=== PATIENT | female | born 1955 | race Caucasian/White ===

== ENCOUNTER 2018-08-01 09:07 | Emergency (ER) | payer BC, MEDICARE ==
--- NOTE | 2018-08-01 10:04 | Emergency Department Record ---
History of Present Illness - General Chief complaint: Female Urogenital Problem Stated complaint: BURN WITH URINATION/FLANK PAIN Time Seen by Provider: 08/01/18 09:55 Source: Patient, RN notes reviewed Mode of Arrival: Ambulatory - History of Present Illness Initial comments: patient has been on two antibiotics and not getting better and finished cipro 10 days BID last night at 7pm and had 4 days of another antibiotic(Macrobid) which was resistant before the cipro . Seen at [facility] times two. She had a fever last night and no tylenol or notrin today and last dose of cipro last night at 7 pm. bilateral flank pain and her pain is mostly with urination. urine from 07/16/2017 positive for klebsiella and sensitive to cipro and rocephin and keflex and resistant to macrobid. Onset/Timin -: Week(s) Radiation: L flank, R flank Severity: Moderate Severity scale (1-10): 5 Quality: Other Consistency: Constant Improves with: None Worsens with: None Associated Symptoms: Dysuria - Related Data Allergies Allergy/AdvReac Type Severity Reaction Status Date / Time No Known Drug Allergies Allergy Verified 08/01/18 09:13 Travel Screening - Travel/Exposure Within Last 30 Days Have you traveled within the last 30 days?: No - Travel/Exposure Within Last Year Have you traveled outside the [place] in the last year?: No - Additonal Travel Details Have you been exposed to anyone with a communicable illness?: No - Travel Symptoms Symptom Screening: None Review of Systems Reviewed: No additional complaints except as noted below Constitutional: Reports: As per HPI. Denies: Chills, Fever, Malaise, Night sweats, Weakness, Weight change Eyes: Reports: As per HPI. Denies: Eye discharge, Eye pain, Photophobia, Vision change ENT: Reports: As per HPI. Denies: Congestion, Dental pain, Ear pain, Epistaxis , Hearing loss, Throat pain Respiratory: Reports: As per HPI. Denies: Cough, Dyspnea, Hemoptysis, Stridor, Wheezes Cardiovascular: Reports: As per HPI. Denies: Arrhythmia, Chest pain, Dyspnea on exertion, Edema, Murmurs, Orthopnea, Palpitations, Paroxysmal nocturnal dyspnea, Rheumatic Fever, Syncope Endocrine: Reports: As per HPI. Denies: Fatigue, Heat or cold intolerance, Polydipsia, Polyuria Gastrointestinal: Reports: As per HPI. Denies: Abdominal pain, Constipation, Diarrhea, Hematemesis, Hematochezia, Melena, Nausea, Vomiting Genitourinary: Reports: As per HPI, Dysuria, Frequency. Denies: Abnormal menses , Discharge, Dyspareunia, Hematuria, Incontinence, Retention, Urgency Musculoskeletal: Reports: As per HPI, Back pain, Other (bilateral flank pain). Denies: Arthralgia, Gout, Joint swelling, Myalgia, Neck pain Skin: Reports: As per HPI. Denies: Bruising, Change in color, Change in hair/ nails, Lesions, Pruritus, Rash Neurological: Reports: As per HPI. Denies: Abnormal gait, Confusion, Headache, Numbness, Paresthesias, Seizure, Tingling, Tremors, Vertigo, Weakness Psychiatric: Reports: As per HPI. Denies: Anxiety, Auditory hallucinations, Depression, Homicidal thoughts, Suicidal thoughts, Visual hallucinations Hematological/Lymphatic: Reports: As per HPI. Denies: Anemia, Blood Clots, Easy bleeding, Easy bruising, Swollen glands Past Medical History - SOCIAL HISTORY Smoking Status: Never smoker Alcohol Use: None Drug Use: None - RESPIRATORY Hx Respiratory Disorders: No - CARDIOVASCULAR Hx Cardio Disorders: Yes Hx Cardiac Cath: Yes Hx Irregular Heartbeat: Yes (A fib) - NEURO Hx Neuro Disorders: No - GI Hx GI Disorders: No - Hx Genitourinary Disorders: No - ENDOCRINE Hx Endocrine Disorders: Yes Hx Diabetes: Yes Hx Thyroid Disease: Yes - MUSCULOSKELETAL Hx Musculoskeletal Disorders: Yes - PSYCH Hx Psych Problems: No - HEMATOLOGY/ONCOLOGY Hx Hematology/Oncology Disorders: No Family Medical History Any Significant Family History?: Yes Hx Cancer: Mother, Brother/Sister, Grandparents Hx Diabetes: Father, Mother, Brother/Sister, Grandparents Hx Heart Disease: Father, Mother Physical Exam - General General Appearance: Alert, Oriented x3, Cooperative, No acute distress - Head Head exam: Normal inspection - Eye Eye exam: Normal appearance, PERRL Pupils: Normal accommodation - ENT ENT exam: Normal exam, Mucous membranes moist, Normal external ear exam, Normal orophraynx, TM's normal bilaterally Ear exam: Normal external inspection. negative: External canal tenderness Nasal Exam: Normal inspection. negative: Discharge, Sinus tenderness Mouth exam: Normal external inspection, Tongue normal Teeth exam: Normal inspection. negative: Dental caries Throat exam: Normal inspection. negative: Tonsillar erythema, Tonsillar exudate - Neck Neck exam: Normal inspection, Full ROM. negative: Tenderness - Respiratory Respiratory exam: Normal lung sounds bilaterally. negative: Respiratory distress - Cardiovascular Cardiovascular Exam: Regular rate, Normal rhythm, Normal heart sounds - GI/Abdominal GI/Abdominal exam: Soft, Normal bowel sounds. negative: Tenderness - Rectal Rectal exam: Deferred - exam: Deferred - Extremities Extremities exam: Normal inspection, Full ROM, Normal capillary refill. negative: Tenderness - Back Back exam: Reports: Normal inspection, Full ROM. Denies: Muscle spasm, Rash noted, Tenderness - Neurological Neurological exam: Alert, Normal gait, Oriented X3, Reflexes normal - Psychiatric Psychiatric exam: Normal affect, Normal mood - Skin Skin exam: Dry, Intact, Normal color, Warm Course Vital Signs 08/01/18 09:23 Temperature 99.9 F H Pulse Rate 91 H Respiratory 20 Rate Blood Pressure 138/62 Pulse Ox 97 - Reevaluation(s) Reevaluation #1: 08/01/18 12:16 08/01/18 12:17 08/01/18 12:18 08/01/18 13:[address] Cifuentes urology at [facility] and will transfer to ED for evaluation and further treatment for obstructed kidney stone and fever and recent UTI. 5 mm in the proximal ureter. Discussed case with Dr Gil HEBERT and will transfer to [facility]. Patient refused an ambulance and will transport her to [facility] ED Medical Decision Making - Data Complexity MDM Data: Labs Ordered and/or Reviewed (14,500 wbc and urine has RBC TNTC), X- Ray Ordered and/or Reviewed (Right kidney stone with hydronephrosis and 5 mm stone in the proximal ureter) - Lab Data Result diagrams: 08/01/18 09:20 08/01/18 09:20 Disposition Clinical Impression: Kidney stone on right side UTI (urinary tract infection) Qualifiers: Urinary tract infection type: acute cystitis Hematuria presence: with hematuria Qualified Code(s): N30.01 - Acute cystitis with hematuria Hematuria Qualifiers: Hematuria type: unspecified type Qualified Code(s): R31.9 - Hematuria, unspecified Hydronephrosis Qualifiers: Hydronephrosis type: with ureteral calculous obstruction Qualified Code(s): N13.2 - Hydronephrosis with renal and ureteral calculous obstruction Disposition: Acute Care Hospital Transfer Condition: (2) Stable Forms: Patient Portal Access Time of Disposition: 14:02 Quality - Quality Measures Quality Measures: N/A - Blood Pressure Screening Does Patient Have Any of the Following: No Blood Pressure Classification: Pre-Hypertensive BP Reading Systolic Measurement: 138 Diastolic Measurement: 62 Screening for High Blood Pressure: < Pre-Hypertensive BP, F/U Documented > [ G8950] Pre-Hypertensive Follow-up Interventions: Referral to alternative/primary care provider.
[2018-08-01] MEDS ORDERED: 0.9 % SODIUM CHLORIDE 1,000 ML BAG IV ONE (10:05)
[2018-08-01] MEDS ORDERED: CEFTRIAXONE SODIUM 2 GM in 0.9 % SODIUM CHLORIDE 100ML 100 ML IVPB ONE (10:07)
[2018-08-01 10:22] LABS: HEMATOCRIT 36.5 % (35.0-47.0); HEMOGLOBIN 13.2 gm/dl (11.6-16.0); MEAN CELL VOLUME 90.8 fl (81-97); MEAN CORPUSCULAR HEMOGLOBIN 32.8 pg (27-33); MEAN CORPUSCULAR HGB CONC 36.2 g/dl (32-36); MEAN PLATELET VOLUME 9.3 fl (7.4-10.4); PLATELET COUNT 356 K/uL (130-400); RED BLOOD COUNT 4.02 M/uL (3.80-5.40); RED CELL DISTRIBUTION WIDTH 12.6 % (11.5-14.5); WHITE BLOOD COUNT W/O DIFF 14.5 K/uL (4.2-12.2)
[2018-08-01 10:24] LABS: URINE APPEARANCE SL CLOUDY; URINE BILIRUBIN NEGATIVE (NEGATIVE); URINE BLOOD LARGE (NEGATIVE); URINE COLOR YELLOW; URINE GLUCOSE (UA) NEGATIVE (NEGATIVE); URINE KETONE NEGATIVE (NEGATIVE); URINE LEUKOCYTE ESTERASE NEGATIVE (NEGATIVE); URINE NITRITE NEGATIVE (NEGATIVE); URINE PROTEIN TRACE (NEGATIVE); URINE UROBILINOGEN 0.2 E.U./dL (0.20 - 1.00)
[2018-08-01 10:30] LABS: URINE EPITHELIAL CELLS 0 - 2 (FEW); URINE WBC NONE SEEN (0-2/hpf)
[2018-08-01 10:32] LABS: BLOOD UREA NITROGEN 14 mg/dL (8-23); CREATININE 0.7 mg/dL (0.5-0.9); EST GLOMERULAR FILTRATION RATE > 60 mL/min
[2018-08-01 10:34] LABS: PLATELET ESTIMATE NORMAL (NORMAL)
[2018-08-01 10:35] LABS: GLUCOSE,RANDOM 172 mg/dL (74-109)
[2018-08-01] MEDS ORDERED: KETOROLAC 30 MG/ML VIAL IVP ONE (13:13)
--- NOTE | 2018-08-02 13:23 | CT SCAN REPORT ---
EXAM: NONCONTRAST CT OF THE ABDOMEN AND PELVIS HISTORY: BILATERAL FLANK PAIN, FEVER. TECHNIQUE: Noncontrast CT of the abdomen and pelvis was obtained. Comparison: None. FINDINGS: Bilateral breast implants, partially seen. Minimal bibasilar atelectasis. Incidental 4 mm subpleural right lower lobe nodule (series 3 image 4). Unremarkable noncontrast appearance of the liver, gallbladder, spleen, adrenal glands, and pancreas. Moderate right hydronephrosis secondary to a 5 mm calculus within the proximal right ureter (coronal series image 87). No additional right ureteral calculi are identified, although the distal most ureter is partially obscured by beam kaur artifact from right hip arthroplasty. No left hydronephrosis. No left sided intrarenal or ureteral calculi are detected. Large volume of stool in the cecum. Moderate volume of stool throughout the remainder of the colon. No focal colonic thickening or inflammatory change. The stomach and small bowel are not dilated. No free air or free fluid. The bladder is obscured by arthroplasty beam hardening artifact. Aortoiliac arterial access is calcified and mildly tortuous without aneurysmal dilatation. No appreciable mesenteric or retroperitoneal lymphadenopathy. No definite acute osseous findings. Multilevel lumbar degenerative changes with extensive degenerative end plate sclerosis at L4-L5. The urinary bladder is obscured by right hip arthropathy beam hardening artifact. IMPRESSION: 1. MODERATE RIGHT HYDROURETERONEPHROSIS SECONDARY TO AN OBSTRUCTING 5 MM CALCULUS WITHIN THE PROXIMAL RIGHT URETER. 2. NO EVIDENCE OF LEFT SIDED OBSTRUCTIVE UROPATHY OR UROLITHIASIS. 3. INCIDENTAL 4 MM RIGHT LOWER LOBE NODULE. IF PATIENT IS CONSIDERED HIGH RISK FOR LUNG CANCER, FOLLOW-UP CT MAY BE OBTAINED IN TWELVE MONTHS. 4. MODERATE TO LARGE COLONIC STOOL BURDEN. JOB NUMBER: [id number] [facility]
== END 2018-08-01 14:16 | disposition short-term general hospital (02) ==
LOC: ER 09:07
DX: N13.2 Hydronephrosis with renal and ureteral calculous obstruction (principal); N30.01 Acute cystitis with hematuria; R50.81 Fever presenting with conditions classified elsewhere; E11.9 Type 2 diabetes mellitus without complications; Z79.84 Long term (current) use of oral hypoglycemic drugs; I48.91 Unspecified atrial fibrillation; Z79.01 Long term (current) use of anticoagulants
CPT/HCPCS: 74176; 80048; 81001; 85027; 96361; 96365; 96375; 99285; J1885; J7030

== ENCOUNTER 2018-09-28 11:07 | Emergency (ER) | payer BC, MEDICARE ==
[2018-09-28] MEDS ORDERED: 0.9 % SODIUM CHLORIDE 1,000 ML BAG IV ONE (11:12)
[2018-09-28] MEDS ORDERED: ONDANSETRON HCL IV 4 MG/2 ML VIAL IVP ONE (11:12)
--- NOTE | 2018-09-28 11:18 | Emergency Department Record ---
History of Present Illness - General Chief Complaint: Abdominal Pain Stated Complaint: ABD PAIN Time Seen by Provider: 09/28/18 11:11 Source: Patient Mode of Arrival: Ambulatory Limitations: No limitations - History of Present Illness Initial Comments: 63 yo female presents from Dr Sutton's office. The patient has had lower abdominal pain and urinary discomfort for 3-4 weeks since a stone was removed and a ureteral stent was removed. On 08/01/[address] scan that demonstrated moderate right hydroureternephrosis secondary to obstructing 5mm stone in the proximal R ureter. OR report on 08/27/18 Sparkaykay Cifuentes. Stent placement after stone extraction. Stent was removed without difficulty on September 11 Urine Culture on 09/24/18 is negative for pathogens, mixed zelda MD Complaint: Abdominal pain, Other (Nausea and Vomiting) -: Days(s) Location: Suprapubic Radiation: Suprapubic Migration to: Suprapubic Severity: Moderate Quality: Aching, Cramping Consistency: Intermittent Improves With: Nothing Worsens With: Other (Urination) Context: Recent surgery/procedure Associated Symptoms: Anorexia - Related Data Previous Rx's Medication Instructions Recorded Docusate Sodium [Colace] 100 mg PO BID #20 cap 09/28/18 Allergies Allergy/AdvReac Type Severity Reaction Status Date / Time No Known Drug Allergies Allergy Unverified 09/28/18 10:07 Review of Systems Constitutional: Reports: Malaise. Denies: Chills, Fever Eyes: Denies: Eye discharge ENT: Denies: Congestion, Throat pain Respiratory: Denies: Cough Cardiovascular: Denies: Chest pain, Palpitations, Syncope Endocrine: Reports: Fatigue Gastrointestinal: Reports: Abdominal pain, Nausea, Vomiting. Denies: Constipation, Diarrhea, Hematemesis, Hematochezia, Melena Genitourinary: Denies: Dysuria, Urgency Musculoskeletal: Reports: Back pain. Denies: Arthralgia Skin: Denies: Bruising, Change in color, Rash Neurological: Denies: Headache Psychiatric: Denies: Anxiety Hematological/Lymphatic: Denies: Easy bleeding, Easy bruising, Swollen glands Past Medical History - SOCIAL HISTORY Smoking Status: Never smoker Drug Use: None - RESPIRATORY Hx Respiratory Disorders: No - CARDIOVASCULAR Hx Cardio Disorders: Yes Hx Cardiac Cath: Yes Hx Irregular Heartbeat: Yes (A fib) - NEURO Hx Neuro Disorders: No - GI Hx GI Disorders: No - Hx Genitourinary Disorders: No - ENDOCRINE Hx Endocrine Disorders: Yes Hx Diabetes: Yes Hx Thyroid Disease: Yes - MUSCULOSKELETAL Hx Musculoskeletal Disorders: Yes - PSYCH Hx Psych Problems: No - HEMATOLOGY/ONCOLOGY Hx Hematology/Oncology Disorders: No Family Medical History Hx Cancer: Mother, Brother/Sister, Grandparents Hx Diabetes: Father, Mother, Brother/Sister, Grandparents Hx Heart Disease: Father, Mother Physical Exam - General General Appearance: Alert, Oriented x3, Cooperative, No acute distress Limitations: No limitations - Head Head exam: Atraumatic, Normal inspection - Eye Eye exam: Normal appearance, PERRL. negative: Conjunctival injection, Scleral icterus - ENT ENT exam: Normal exam Ear exam: Normal external inspection Nasal Exam: Normal inspection Mouth exam: Normal external inspection - Neck Neck exam: Normal inspection - Respiratory Respiratory exam: Normal lung sounds bilaterally. negative: Respiratory distress - Cardiovascular Cardiovascular Exam: Regular rate, Normal rhythm, Normal heart sounds - GI/Abdominal GI/Abdominal exam: Soft, Normal bowel sounds. negative: Distended, Guarding, Rebound, Rigid, Tenderness - Rectal Rectal exam: Deferred - exam: Deferred - Extremities Extremities exam: Normal inspection. negative: Tenderness - Back Back exam: Reports: Normal inspection - Neurological Neurological exam: Alert, Oriented X3 - Psychiatric Psychiatric exam: Normal affect, Normal mood - Skin Skin exam: Dry, Intact, Normal color, Warm Course - Reevaluation(s) Reevaluation #1: EMR and [facility] reviewed. SEE HPI for information 09/28/18 11:33 09/28/18 11:51 The CBC and the BMP were reviewed. No acute changes. 09/28/18 12:07 UA is negative 09/28/18 12:[address] scan was negative for any acute process or obstruction. Moderate stool noted throughout the colon. The patient was advised on constipation treatment. If she remains symptomatic I encouraged her to call her urologist for another outpatient recheck. 09/28/18 12:35 Dr Sutton was updated on the results and recommendations for close follow up Medical Decision Making - Lab Data Result diagrams: 09/28/18 11:20 09/28/18 11:20 Disposition Disposition: Discharge Clinical Impression: Dysuria, Constipation Disposition: Home, Self-Care Condition: (1) Good Instructions: Constipation (ED), Dysuria (ED) Additional Instructions: Call your doctor for the next available follow up appointment Return to the ER for a recheck if worse, any new concerns or questions Take the prescriptions provided as directed Review this ER visit and the tests performed with your family doctor Also, call your urologist for close follow up if the urinary symptoms continue Prescriptions: Docusate Sodium [Colace] 100 mg PO BID #20 cap Forms: Patient Portal Access Time of Disposition: 18:39 Quality - Quality Measures Quality Measures: N/A - Blood Pressure Screening Does Patient Have Any of the Following: Active Dx of HTN Blood Pressure Classification: Pre-Hypertensive BP Reading Systolic Measurement: 166 Diastolic Measurement: 80 Screening for High Blood Pressure: Patient Exclusion, Hx of HTN [G9744]
[2018-09-28 11:33] LABS: BASO % 0.5 % (0-6); EOS % 0.7 % (0-6); GRAN % 50.7 % (47-80); HEMOGLOBIN 11.9 gm/dl (11.6-16.0); MEAN CELL VOLUME 84.3 fl (81-97); MEAN CORPUSCULAR HEMOGLOBIN 26.4 pg (27-33); MEAN CORPUSCULAR HGB CONC 31.3 g/dl (32-36); MONO % 9.1 % (0-9); PLATELET COUNT 390 K/uL (130-400); RED BLOOD COUNT 4.51 M/uL (3.80-5.40); RED CELL DISTRIBUTION WIDTH 13.2 % (11.5-14.5)
[2018-09-28 11:43] LABS: BLOOD UREA NITROGEN 18 mg/dL (8-23); CREATININE 0.8 mg/dL (0.5-0.9); EST GLOMERULAR FILTRATION RATE > 60 mL/min
[2018-09-28 11:44] LABS: LIPASE 21 U/L (13-60); TOTAL PROTEIN 8.4 g/dL (6.6-8.7)
[2018-09-28 11:46] LABS: GLUCOSE,RANDOM 144 mg/dL (74-109)
[2018-09-28 11:48] LABS: ALB/GLOB RATIO 1.5 (1.1-1.8); ALKALINE PHOSPHATASE 62 U/L (35-104); ALT/SGPT 28 U/L (<33); AST/SGOT 29 U/L (10.0-35.0)
[2018-09-28 11:57] LABS: URINE APPEARANCE CLEAR; URINE BILIRUBIN NEGATIVE (NEGATIVE); URINE BLOOD NEGATIVE (NEGATIVE); URINE COLOR YELLOW; URINE GLUCOSE (UA) NEGATIVE (NEGATIVE); URINE KETONE NEGATIVE (NEGATIVE); URINE LEUKOCYTE ESTERASE NEGATIVE (NEGATIVE); URINE NITRITE NEGATIVE (NEGATIVE); URINE PROTEIN NEGATIVE (NEGATIVE); URINE UROBILINOGEN 0.2 E.U./dL (0.20 - 1.00)
--- NOTE | 2018-10-01 13:06 | CT SCAN REPORT ---
EXAM: CT OF THE ABDOMEN AND PELVIS WITHOUT CONTRAST HISTORY: RECENT RIGHT URETERAL STENT REMOVAL (09/03/18). PAIN. TECHNIQUE: Routine helical CT examination of the abdomen and pelvis was performed without oral or intravenous contrast administration. Lack of oral and IV contrast utilization limits evaluation of the bowel and solid viscera respectively. Comparison: CT of the abdomen and pelvis without contrast dated 08/01/18. FINDINGS: The inferior portions of bilateral breast implants are visualized with calcified capsule again noted on the left. Mild dependent atelectasis in each lung base. There is redemonstration of an incidental 4 mm subpleural nodule in the lateral right lung base as seen on series 3 image 5. This is unchanged. No pleural or pericardial effusion. The heart is not enlarged. The liver, spleen, pancreas, and adrenal glands are normal in appearance. The gallbladder is mildly to moderately distended without gallbladder wall thickening nor calcified gallstone. No biliary ductal dilatation is seen. The kidneys remain normal in position and smoothly marginated. There is borderline prominence of the proximal renal collecting system without zone of transition nor definite calculus identified. There are a couple tiny calcifications again noted within the right hemipelvis that are likely outside the distal ureter. The left renal collecting system is nondilated. No nephrolithiasis nor renal mass. No intraabdominal nor retroperitoneal lymphadenopathy. There is diffuse atherosclerosis. Evaluation of the inferior pelvis is limited by beam hardening artifact from right hip prosthesis. No new pelvic mass, lymphadenopathy, or free pelvic fluid. No new gross bowel dilatation nor bowel wall thickening. Occasional diverticula are noted within the left colon without evidence of diverticulitis. By history the appendix is surgically absent. There is a moderate amount of stool throughout the colon. There is mild diffuse atherosclerosis without aneurysmal dilatation of the abdominal aorta nor iliac arteries. No new lytic or blastic bone lesion. There are degenerative changes scattered throughout the visualized spine. IMPRESSION: 1. THE PREVIOUSLY DEMONSTRATED OBSTRUCTING CALCULUS IN THE PROXIMAL RIGHT URETER IS NO LONGER IDENTIFIED. THE PROXIMAL RIGHT RENAL COLLECTING SYSTEM IS BORDERLINE PROMINENT WITHOUT A DEFINITE OBSTRUCTING LESION SEEN. NO URETERAL CALCULUS. 2. NO CONVINCING CT EVIDENCE OF AN ACUTE INTRAABDOMINAL NOR INTRAPELVIC PROCESS. 3. 4 MM NONCALCIFIED NODULE REDEMONSTRATED IN THE RIGHT LUNG BASE. BEFORE, IF PATIENT IS CONSIDERED HIGH RISK FOR LUNG CANCER, FOLLOW-UP CT CHEST IN TWELVE MONTHS IS RECOMMENDED. 4. MODERATE VOLUME OF STOOL THROUGH THE COLON. JOB NUMBER: [id number] [facility]
== END 2018-09-28 12:48 | disposition home or self-care (01) ==
LOC: ER 11:07
DX: K59.00 Constipation, unspecified (principal); R30.0 Dysuria; R11.2 Nausea with vomiting, unspecified; I10 Essential (primary) hypertension; I48.91 Unspecified atrial fibrillation; Z87.442 Personal history of urinary calculi
CPT/HCPCS: 99284 ×2; 96374; 83690; 85025; 80053; 81003; 74176; J2405; J7030

== ENCOUNTER 2019-08-24 09:44 | Emergency (ER) | payer BC, MEDICARE ==
[2019-08-24] MEDS ORDERED: 0.9 % SODIUM CHLORIDE 1,000 ML BAG IV ONE (09:54)
--- NOTE | 2019-08-24 09:57 | Emergency Department Record ---
History of Present Illness - General Stated Complaint: ABDOMINAL PAIN Time Seen by Provider: 08/24/19 09:46 Source: Patient, Family Mode of Arrival: Ambulatory Limitations: No limitations - History of Present Illness Initial Comments: 64 yo female presents with 6 weeks of pain on the right side of her abdomen. The pain is intermittent but very frequent. She denies any other major changes in her health. No nausea, vomiting, diarrhea. She does have constipation. No fever. Her appetite is not significantly changed. No blood in her stools or urine. She denies any fever. No back pain. No cough, chest pain or shortness of breath. She has a prior history of appendectomy, hysterectomy, tubal ligation. Prior studies demonstrated diverticulosis, renal stones. MD Complaint: Abdominal pain -: Week(s) (6) Location: RUQ Radiation: RUQ Migration to: RUQ Severity: Moderate Quality: Aching Consistency: Intermittent Improves With: Nothing Worsens With: Nothing Context: Other Associated Symptoms: Denies other symptoms - Related Data Home Medications Medication Instructions Recorded Confirmed Last Taken Zolpidem Tartrate 10 mg PO QHS 08/24/19 08/24/19 08/23/19 Previous Rx's Medication Instructions Recorded Polyethylene Glycol 3350 [Miralax] 17 gm PO DAILY #20 packet 08/24/19 Allergies Allergy/AdvReac Type Severity Reaction Status Date / Time No Known Drug Allergies Allergy Verified 08/24/19 09:50 Review of Systems Constitutional: Denies: Chills, Fever, Malaise, Weakness Eyes: Denies: Eye discharge ENT: Denies: Congestion, Throat pain Respiratory: Denies: Cough, Dyspnea, Wheezes Cardiovascular: Denies: Chest pain, Edema, Palpitations, Syncope Endocrine: Denies: Fatigue, Polydipsia, Polyuria Gastrointestinal: Reports: As per HPI, Abdominal pain, Constipation. Denies: Diarrhea, Hematemesis, Hematochezia, Melena, Nausea, Vomiting Genitourinary: Denies: Dysuria, Urgency Musculoskeletal: Denies: Arthralgia, Back pain, Myalgia Skin: Denies: Bruising, Change in color, Rash Neurological: Denies: Headache Psychiatric: Denies: Anxiety Hematological/Lymphatic: Denies: Easy bleeding, Easy bruising Past Medical History - SOCIAL HISTORY Smoking Status: Never smoker Drug Use: None - RESPIRATORY Hx Respiratory Disorders: No - CARDIOVASCULAR Hx Cardio Disorders: Yes Hx Cardiac Cath: Yes Hx Irregular Heartbeat: Yes (A fib) - NEURO Hx Neuro Disorders: No - GI Hx GI Disorders: No - Hx Genitourinary Disorders: No - ENDOCRINE Hx Endocrine Disorders: Yes Hx Diabetes: Yes Hx Thyroid Disease: Yes - MUSCULOSKELETAL Hx Musculoskeletal Disorders: Yes - PSYCH Hx Psych Problems: No - HEMATOLOGY/ONCOLOGY Hx Hematology/Oncology Disorders: No Family Medical History Hx Cancer: Mother, Brother/Sister, Grandparents Hx Diabetes: Father, Mother, Brother/Sister, Grandparents Hx Heart Disease: Father, Mother Physical Exam - General General Appearance: Alert, Oriented x3, Cooperative, No acute distress Limitations: No limitations - Head Head exam: Atraumatic, Normal inspection - Eye Eye exam: Normal appearance. negative: Conjunctival injection - ENT ENT exam: Normal exam, Mucous membranes moist Ear exam: Normal external inspection Nasal Exam: Normal inspection Mouth exam: Normal external inspection - Neck Neck exam: Normal inspection - Respiratory Respiratory exam: Normal lung sounds bilaterally. negative: Respiratory distress - Cardiovascular Cardiovascular Exam: Regular rate, Normal rhythm, Normal heart sounds - GI/Abdominal GI/Abdominal exam: Soft, Tenderness. negative: Distended, Guarding, Rebound, Rigid - Rectal Rectal exam: Deferred - exam: Deferred - Extremities Extremities exam: Normal inspection. negative: Pedal edema, Tenderness - Back Back exam: Denies: CVA tenderness (R), CVA tenderness (L), Paraspinal tenderness, Rash noted - Neurological Neurological exam: Alert, Oriented X3 - Psychiatric Psychiatric exam: Normal affect, Normal mood - Skin Skin exam: Dry, Intact, Normal color, Warm Course - Reevaluation(s) Reevaluation #1: 08/24/19 10:05 Vitals were reviewed No significant abnormalities The patient declined pain medication at this time 08/24/19 10:19 The CBC was normal on review 08/24/19 10:32 The CMP was reviewed The Glucosse was 264 The Lipase is normal No significant changes in the LFTs 08/24/19 10:42 The patient was updated on her lab results She is resting comfortably waiting for CT scan. She declined and pain medication 08/24/19 12:[address] was reviewed. A large amount of stool noted. Subtle prominence of the right renal collecting system and right ureter compared to left. No stones visualized. The results were discussed and provided to the patient. We discussed Miralax and follow up for possible US if the RUQ pain continues. The patient is doing well and is comfortable with DC. We discussed at length reasons to immediately return to the ED as well as close follow up. The patient will call the PCP for close follow up of this ED visit to review this visit and the tests performed DC vitals were reviewed. The patient was given a copy of the radiology reports to review with their family doctor for follow up We discussed getting an US if the pain continues either through the ED or her family doctor if she can get in or it arranged 08/24/19 12:36 Medical Decision Making - Lab Data Result diagrams: 08/24/19 09:55 08/24/19 09:55 Disposition Disposition: Discharge Clinical Impression: Right upper quadrant abdominal pain Disposition: Home, Self-Care Condition: (1) Good Instructions: Constipation (ED), Abdominal Pain (ED) Additional Instructions: Review this ER visit and the tests performed with your family doctor Call your doctor for the next available follow up appointment Return to the ER for a recheck immediately if worse, any new concerns or questions If the right upper pain continues I recommend an ultrasound in the ER or through your family doctor Prescriptions: Polyethylene Glycol 3350 [Miralax] 17 gm PO DAILY #20 packet Forms: Patient Portal Access Time of Disposition: 12:15 Quality - Quality Measures Quality Measures: N/A - Blood Pressure Screening Does Patient Have Any of the Following: Active Dx of HTN Blood Pressure Classification: Hypertensive Reading Systolic Measurement: 197 Diastolic Measurement: 102 Screening for High Blood Pressure: Patient Exclusion, Hx of HTN [G9744]
[2019-08-24 10:11] LABS: URINE APPEARANCE CLEAR; URINE BILIRUBIN NEGATIVE (NEGATIVE); URINE BLOOD NEGATIVE (NEGATIVE); URINE COLOR YELLOW; URINE KETONE NEGATIVE (NEGATIVE); URINE LEUKOCYTE ESTERASE NEGATIVE (NEGATIVE); URINE NITRITE NEGATIVE (NEGATIVE); URINE PROTEIN NEGATIVE (NEGATIVE); URINE UROBILINOGEN 0.2 E.U./dL (0.20 - 1.00)
[2019-08-24 10:12] LABS: ABSOLUTE NEUTROPHIL COUNT 3.42; BASO % 0.3 % (0-6); EOS % 0.3 % (0-6); GRAN % 58.3 % (47-80); HEMATOCRIT 40.1 % (35.0-47.0); HEMOGLOBIN 13.4 gm/dl (11.6-16.0); LYMPH % 30.6 % (16-45); MEAN CELL VOLUME 98.3 fl (81-97); MEAN CORPUSCULAR HEMOGLOBIN 32.8 pg (27-33); MEAN CORPUSCULAR HGB CONC 33.4 g/dl (32-36); MEAN PLATELET VOLUME 8.8 fl (7.4-10.4); MONO % 10.5 % (0-9); PLATELET COUNT 321 K/uL (130-400); RED BLOOD COUNT 4.08 M/uL (3.80-5.40); RED CELL DISTRIBUTION WIDTH 12.3 % (11.5-14.5); WHITE BLOOD COUNT W/O DIFF 5.9 K/uL (4.2-12.2)
[2019-08-24 10:25] LABS: BLOOD UREA NITROGEN 12 mg/dL (8-23); CREATININE 0.6 mg/dL (0.5-0.9); EST GLOMERULAR FILTRATION RATE > 60 mL/min
[2019-08-24 10:26] LABS: LIPASE 34 U/L (13-60); TOTAL PROTEIN 8.1 g/dL (6.6-8.7)
[2019-08-24 10:28] LABS: GLUCOSE,RANDOM 264 mg/dL (74-109)
[2019-08-24 10:31] LABS: ALB/GLOB RATIO 1.7 (1.1-1.8); ALBUMIN 5.1 g/dL (4.0-5.0); ALKALINE PHOSPHATASE 60 U/L (35-104); ALT/SGPT 50 U/L (<33); AST/SGOT 27 U/L (10.0-35.0)
--- NOTE | 2019-08-24 12:02 | CT SCAN REPORT ---
EXAMINATION: CT Abdomen and Pelvis with IV Contrast EXAM DATE: 08/24/2019 11:35 AM TECHNIQUE: CT imaging of the abdomen and pelvis was performed with intravenous contrast. Coronal and sagittal images were reconstructed. IV Contrast: The amount and type of contrast are recorded in the medical record. INDICATION: R sided abdominal pain COMPARISON: September 2018 CT scan. ENCOUNTER: Not applicable CT ABDOMEN AND PELVIS FINDINGS: Lung Bases: Included extent of the lung bases are clear. Hepatobiliary: The liver has a normal size with a smooth surface. The hepatic and portal veins appear patent. The gallbladder is normal. Pancreas: The pancreas is normal. Spleen: The spleen is not enlarged. Adrenals: The adrenal glands are normal. Kidneys, Ureters, & Bladder: There is subtle asymmetric prominence of the right renal collecting syst em and ureter compared to the left. No obstructing or nonobstructing calculi are identified but the right distal ureter and right UVJ are partially obscured by streak artifact from right total hip arth roplasty hardware. Kidneys enhance normally and symmetrically. Gastrointestinal: The stomach and small bowel are normal with no obstruction or inflammation. A large amount of stool is present throughout the colon and rectum. Reproductive Organs: Status post hysterectomy. Lymphatic System: There is no adenopathy within the abdomen or pelvis. Vasculature: Normal caliber abdominal aorta. Mild to moderate atherosclerosis is noted. Peritoneum: No free fluid, free air, or inflammation Abdominal Wall & Musculoskeletal: No suspicious bone lesions. IMPRESSION: Subtle asymmetric prominence of the right renal collecting system and right ureter compared to the le ft. No obstructing calculi are identified but the distal right ureter and right UVJ are partially obs cured by streak artifact from right total hip arthroplasty hardware. Considerations include tiny obst ructing distal right ureteral calculus, recently passed calculus, and ascending urinary tract infecti on (less likely). Dictated by: Ashwin Durham MD on 08/24/2019 11:55 AM. .
== END 2019-08-24 12:49 | disposition home or self-care (01) ==
LOC: ER 09:44
DX: R10.11 Right upper quadrant pain (principal); K59.00 Constipation, unspecified; I48.91 Unspecified atrial fibrillation; E11.9 Type 2 diabetes mellitus without complications
CPT/HCPCS: 99284 ×2; 83690; 85025; 80053; 81003; 74177; Q9967; J7030

== ENCOUNTER 2019-09-04 08:00 | Emergency (ER) | payer BC, MEDICARE ==
[2019-09-04] MEDS ORDERED: 0.9 % SODIUM CHLORIDE 1,000 ML BAG IV ONE (08:27)
[2019-09-04] MEDS ORDERED: DICYCLOMINE HCL 10 MG/ML AMPUL IM ONE (08:27)
--- NOTE | 2019-09-04 08:30 | Emergency Department Record ---
History of Present Illness - General Chief Complaint: Abdominal Pain Stated Complaint: ABD PAIN Time Seen by Provider: 09/04/19 08:20 Source: Patient, RN notes reviewed Mode of Arrival: Ambulatory - History of Present Illness Initial Comments: right upper quad pain and she states not tolerable and was seen here about one week ago and CT scan negative and US ordered by Dr Sutton she had a positive US murphies sign and two small polyps in the gall bladder. Patient states pain was going on for 6 weeks and initially she thought it was back pain. PSH hysterectomy , appendectomy, hip replacement back surgery, She used to have a back stimulatory but that was removed. Patient is constipated and refused narcotics and she accepted Bentyl. She has ultram at home. Reviewed CT of abd pelvis no kidney stones seen, UD reviewed and reviewed ED chart. Onset/Timin -: Week(s) Location: RUQ Radiation: Back Severity scale (1-10): 8 Quality: Aching, Burning, Cramping, Dull, Sharp, Stabbing Consistency: Constant Associated Symptoms: Nausea - Related Data Previous Rx's Medication Instructions Recorded Polyethylene Glycol 3350 [Miralax] 17 gm PO DAILY #20 packet 08/24/19 Dicyclomine HCl [Bentyl] 10 mg PO Q8H #30 cap 09/04/19 Allergies Allergy/AdvReac Type Severity Reaction Status Date / Time No Known Drug Allergies Allergy Verified 08/24/19 09:50 Travel/Exposure Screening - Travel/Exposure Within Last 30 Days Have you traveled within the last 30 days?: No - Travel/Exposure Within Last Year Have you traveled outside the [place] in the last year?: No - Additonal Travel/Exposure Details Have you been exposed to anyone with a communicable illness?: No - Travel Symptoms Symptom Screening: None Review of Systems Reviewed: No additional complaints except as noted below Constitutional: Reports: As per HPI. Denies: Chills, Fever, Malaise, Night sweats, Weakness, Weight change Eyes: Reports: As per HPI. Denies: Eye discharge, Eye pain, Photophobia, Vision change ENT: Reports: As per HPI. Denies: Congestion, Dental pain, Ear pain, Epistaxis, Hearing loss, Throat pain Respiratory: Reports: As per HPI. Denies: Cough, Dyspnea, Hemoptysis, Stridor, Wheezes Cardiovascular: Reports: As per HPI. Denies: Arrhythmia, Chest pain, Dyspnea on exertion, Edema, Murmurs, Orthopnea, Palpitations, Paroxysmal nocturnal dyspnea, Rheumatic Fever, Syncope Endocrine: Reports: As per HPI. Denies: Fatigue, Heat or cold intolerance, Polydipsia, Polyuria Gastrointestinal: Reports: As per HPI, Abdominal pain, Constipation, Nausea. Denies: Diarrhea, Hematemesis, Hematochezia, Melena, Vomiting Genitourinary: Reports: As per HPI. Denies: Abnormal menses, Discharge, Dyspareunia, Dysuria, Frequency, Hematuria, Incontinence, Retention, Urgency Musculoskeletal: Reports: As per HPI. Denies: Arthralgia, Back pain, Gout, Joint swelling, Myalgia, Neck pain Skin: Reports: As per HPI. Denies: Bruising, Change in color, Change in hair/nails, Lesions, Pruritus, Rash Neurological: Reports: As per HPI. Denies: Abnormal gait, Confusion, Headache, Numbness, Paresthesias, Seizure, Tingling, Tremors, Vertigo, Weakness Psychiatric: Reports: As per HPI. Denies: Anxiety, Auditory hallucinations, Depression, Homicidal thoughts, Suicidal thoughts, Visual hallucinations Hematological/Lymphatic: Reports: As per HPI. Denies: Anemia, Blood Clots, Easy bleeding, Easy bruising, Swollen glands Past Medical History - SOCIAL HISTORY Smoking Status: Never smoker Alcohol Use: None Drug Use: None - RESPIRATORY Hx Respiratory Disorders: No - CARDIOVASCULAR Hx Cardio Disorders: Yes Hx Cardiac Cath: Yes Hx Irregular Heartbeat: Yes (A fib) - NEURO Hx Neuro Disorders: No - GI Hx GI Disorders: No - Hx Genitourinary Disorders: No - ENDOCRINE Hx Endocrine Disorders: Yes Hx Diabetes: Yes Hx Thyroid Disease: Yes - MUSCULOSKELETAL Hx Musculoskeletal Disorders: Yes - PSYCH Hx Psych Problems: No - HEMATOLOGY/ONCOLOGY Hx Hematology/Oncology Disorders: No Family Medical History Any Significant Family History?: No Hx Cancer: Mother, Brother/Sister, Grandparents Hx Diabetes: Father, Mother, Brother/Sister, Grandparents Hx Heart Disease: Father, Mother Physical Exam - General General Appearance: Alert, Oriented x3, Cooperative, Moderate distress - Head Head exam: Normal inspection - Eye Eye exam: Normal appearance, PERRL Pupils: Normal accommodation - ENT ENT exam: Normal exam, Mucous membranes moist, Normal external ear exam, Normal orophraynx, TM's normal bilaterally Ear exam: Normal external inspection. negative: External canal tenderness Nasal Exam: Normal inspection. negative: Discharge, Sinus tenderness Mouth exam: Normal external inspection, Tongue normal Teeth exam: Normal inspection. negative: Dental caries Throat exam: Normal inspection. negative: Tonsillar erythema, Tonsillar exudate - Neck Neck exam: Normal inspection, Full ROM. negative: Tenderness - Respiratory Respiratory exam: Normal lung sounds bilaterally. negative: Respiratory distre ss - Cardiovascular Cardiovascular Exam: Regular rate, Normal rhythm, Normal heart sounds - GI/Abdominal GI/Abdominal exam: Soft, Normal bowel sounds, Tenderness (right upper quad pain with a murphies sign) - Rectal Rectal exam: Deferred - exam: Deferred - Extremities Extremities exam: Normal inspection, Full ROM, Normal capillary refill. negative: Tenderness - Back Back exam: Reports: Normal inspection, Full ROM. Denies: Muscle spasm, Rash noted, Tenderness - Neurological Neurological exam: Alert, Normal gait, Oriented X3, Reflexes normal - Psychiatric Psychiatric exam: Normal affect, Normal mood - Skin Skin exam: Dry, Intact, Normal color, Warm Course Vital Signs 09/04/19 08:06 Temperature 98.1 F Pulse Rate [ 103 H Pulse Ox Probe] Respiratory 20 Rate Blood Pressure 197/102 [Left Arm] Pulse Ox 98 - Reevaluation(s) Reevaluation #1: reviewed labs with the patient and she said her pain is slightly better with the bentyl but she is tired of dealing with this pain and she would like to have it out. Currently she said she has an appointment with Dr Cortes on monday at [facility]. Discussed case with Dr. Cortes 09/04/19 09:18 09/04/19 09:30 Dr. Cortes requested a hida scan and will check to see if it can be done today. Reevaluation #2: Next time Hida scan can be done here is monday. Dr Cortes said he could see her today at 1:30 pm today in his office in [place] 09/04/19 10:21 Reevaluation #3: dose of ofirmiv 1000 mg given in ED 09/04/19 10:28 Reevaluation #4: patient feeling some better 09/04/19 10:31 Medical Decision Making - Data Complexity MDM Data: Labs Ordered and/or Reviewed (WBC 4,100, hg 13.4, Urine no blood in her urine and she is spilling glucose ), X-Ray Ordered and/or Reviewed - Lab Data Result diagrams: 09/04/19 08:15 09/04/19 08:36 Disposition Clinical Impression: Right upper quadrant abdominal pain, Gallbladder disease Disposition: Home, Self-Care Condition: (1) Good Instructions: Abdominal Pain (ED) Additional Instructions: Go to Dr Giraldo office for evaluation at 1:30 pm today No eating till seen by Dr Cortes and will give script of bentyl for pain Prescriptions: Dicyclomine HCl [Bentyl] 10 mg PO Q8H #30 cap Forms: Patient Portal Access Time of Disposition: 10:28 Quality - Quality Measures Quality Measures: N/A - Blood Pressure Screening Does Patient Have Any of the Following: No, Active Dx of HTN Blood Pressure Classification: Hypertensive Reading Systolic Measurement: 149 Diastolic Measurement: 71 Screening for High Blood Pressure: Patient Exclusion, Hx of HTN [G9744] Pre-Hypertensive Follow-up Interventions: Referral to alternative/primary care provider.
[2019-09-04 08:41] LABS: URINE APPEARANCE CLEAR; URINE BILIRUBIN NEGATIVE (NEGATIVE); URINE BLOOD NEGATIVE (NEGATIVE); URINE COLOR YELLOW; URINE KETONE NEGATIVE (NEGATIVE); URINE LEUKOCYTE ESTERASE NEGATIVE (NEGATIVE); URINE NITRITE NEGATIVE (NEGATIVE); URINE PROTEIN NEGATIVE (NEGATIVE); URINE UROBILINOGEN 0.2 E.U./dL (0.20 - 1.00)
[2019-09-04 08:41] LABS: ABSOLUTE NEUTROPHIL COUNT 2.26; BASO % 0.5 % (0-6); EOS % 0.5 % (0-6); GRAN % 55.4 % (47-80); HEMATOCRIT 38.8 % (35.0-47.0); HEMOGLOBIN 13.4 gm/dl (11.6-16.0); LYMPH % 33.1 % (16-45); MEAN CELL VOLUME 95.6 fl (81-97); MEAN CORPUSCULAR HGB CONC 34.5 g/dl (32-36); MONO % 10.5 % (0-9); PLATELET COUNT 276 K/uL (130-400); RED BLOOD COUNT 4.06 M/uL (3.80-5.40); RED CELL DISTRIBUTION WIDTH 11.7 % (11.5-14.5); WHITE BLOOD COUNT W/O DIFF 4.1 K/uL (4.2-12.2)
[2019-09-04 08:50] LABS: BLOOD UREA NITROGEN 10 mg/dL (8-23); CREATININE 0.7 mg/dL (0.5-0.9); EST GLOMERULAR FILTRATION RATE > 60 mL/min
[2019-09-04 08:51] LABS: LIPASE 20 U/L (13-60); TOTAL PROTEIN 7.6 g/dL (6.6-8.7)
[2019-09-04 08:53] LABS: GLUCOSE,RANDOM 287 mg/dL (74-109)
[2019-09-04 08:55] LABS: ALT/SGPT 28 U/L (<33); AST/SGOT 21 U/L (10.0-35.0)
[2019-09-04 08:56] LABS: ALBUMIN 4.7 g/dL (4.0-5.0); ALKALINE PHOSPHATASE 61 U/L (35-104)
[2019-09-04 08:57] LABS: BILIRUBIN,DIRECT < 0.2 mg/dL (0-0.3)
[2019-09-04] MEDS ORDERED: ACETAMINOPHEN 1,000 MG/100 ML BTL IVPB ONE (10:20)
== END 2019-09-04 11:06 | disposition home or self-care (01) ==
LOC: ER 08:00
DX: K82.9 Disease of gallbladder, unspecified (principal); R10.11 Right upper quadrant pain; R11.0 Nausea; I48.91 Unspecified atrial fibrillation; E11.9 Type 2 diabetes mellitus without complications; I10 Essential (primary) hypertension
CPT/HCPCS: 80048; 80076; 81003; 83690; 85025; 96365; 96372; 99284; J7030